=== PATIENT | female | born 1935 | race Caucasian/White ===

== ENCOUNTER 2017-09-22 07:38 | Day surgery (SDC) | payer MEDICARE, OTHER ==
[2017-09-22] MEDS ORDERED: PROPOFOL 20 ML (08:48)
== END 2017-09-22 10:15 | disposition home or self-care (01) ==
LOC: GIL 07:38
DX: Z12.11 Encounter for screening for malignant neoplasm of colon (principal); K29.60 Other gastritis without bleeding; K57.90 Diverticulosis of intestine, part unspecified, without perforation or abscess without bleeding; I10 Essential (primary) hypertension
CPT/HCPCS: 43239; 88305